=== PATIENT | female | born 1985 | race Two or more races ===

== ENCOUNTER 2023-08-29 13:13 | Emergency (ER) | payer MEDICAID, OTHER ==
[~2023-08-29] VITALS: Ht 175.3 cm; Wt 64.0 kg
[2023-08-29] MEDS ORDERED: IBUP-1955 PO (15:20)
[2023-08-29] MEDS ORDERED: IBUPROFEN 600 MG TABLET ONE (15:30)
[2023-08-29] MEDS ORDERED: IBUPROFEN 600 MG TABLET PO ONE (15:30)
[2023-08-29 15:34] VITALS: BP 123/72; TEMP 98; O2SAT 100
== END 2023-08-29 15:34 | disposition home or self-care (01) ==
LOC: ER 13:17
DX: S93.492A Sprain of other ligament of left ankle, initial encounter (principal); S93.692A Other sprain of left foot, initial encounter; W01.0XXA Fall on same level from slipping, tripping and stumbling without subsequent striking against object, initial encounter; Y93.89 Activity, other specified; Y92.89 Other specified places as the place of occurrence of the external cause; Y99.8 Other external cause status
CPT/HCPCS: 73590-TC; 73610-TC; 73630-TC